=== PATIENT | female | born 1995 | race Caucasian/White ===

== ENCOUNTER 2018-11-15 11:17 | Inpatient (IN) | payer BC ==
[2018-11-15 12:54] LABS: ADD MAN DIFF? NO
[2018-11-15 12:57] LABS: BASOPHIL # 0.1 10^3/ul (0.0-0.1); BASOPHILS % 0.6 % (0.0-2.0); EOSINOPHILS # 0.2 10^3/ul (0.0-0.5); EOSINOPHILS % 2.6 % (0.0-7.0); HEMATOCRIT 32.1 % (37.0-47.0); HEMOGLOBIN 10.2 g/dl (12.0-16.0); LYMPHOCYTES # 1.3 10^3/ul (0.8-2.9); LYMPHOCYTES % 14.3 % (15.0-51.0); MEAN CORPUSCULAR HEMOGLOBIN 27.3 pg (29.0-33.0); MEAN CORPUSCULAR HGB CONC 31.8 g/dl (32.0-37.0); MEAN CORPUSCULAR VOLUME 85.8 fl (82.0-101.0); MEAN PLATELET VOLUME 9.8 fl (7.4-10.4); MONOCYTE # 0.7 10^3/ul (0.3-0.9); MONOCYTES % 7.7 % (0.0-11.0); NEUTROPHIL # 6.6 10^3/ul (1.6-7.5); NEUTROPHILS % 73.9 % (39.0-77.0); PLATELET COUNT 198 10^3/UL (140-415); RED BLOOD COUNT 3.74 10^6/ul (4.20-5.40); RED CELL DISTRIBUTION WIDTH 14.6 % (11.5-14.5)
[2018-11-15 13:29] LABS: ADD UMIC YES; UR ASCORBIC ACID NEGATIVE (NEGATIVE); UR BACTERIA FEW /HPF (NONE SEEN); UR BILIRUBIN (Dip) NEGATIVE (NEGATIVE); UR BLOOD (Dip) 1+ mg/dL (NEGATIVE); UR CLARITY CLOUDY (CLEAR); UR COLOR YELLOW (YELLOW); UR GLUCOSE (Dip) NEGATIVE (NEGATIVE); UR KETONES (Dip) NEGATIVE (NEGATIVE); UR LEUKOCYTE ESTERASE (Dip) 1+ Leu/ul (NEGATIVE); UR MUCUS FEW /HPF (NONE SEEN); UR NITRITE (Dip) NEGATIVE (NEGATIVE); UR NONSQUAMOUS EPITHELIAL CELL 1 /HPF (NONE SEEN); UR RBC 5 /HPF (0-5); UR SPECIFIC GRAVITY (Dip) 1.021 (1.003-1.030); UR SQUAMOUS EPITHELIAL CELL FEW /HPF (FEW); UR TOTAL PROTEIN (Dip) 1+ mg/dl (NEGATIVE); UR UROBILINOGEN (Dip) NEGATIVE (NEGATIVE); UR WBC 16 /HPF (0-5)
[2018-11-15 13:33] LABS: ALANINE AMINOTRANSFERASE 13 IU/L (13-69); ALBUMIN 3.3 g/dl (3.3-4.9); ALBUMIN/GLOBULIN RATIO 0.97; ALKALINE PHOSPHATASE 177 IU/L (42-121); ANION GAP 7 (5-13); ASPARTATE AMINO TRANSFERASE 21 IU/L (15-46); BILIRUBIN,INDIRECT 0.4 mg/dl (0-1.1); BILIRUBIN,TOTAL 0.4 mg/dl (0.2-1.3); BLOOD UREA NITROGEN 10 mg/dl (7-20); CALCIUM 9.8 mg/dl (8.4-10.2); CARBON DIOXIDE 24 mmol/L (21-31); CHLORIDE 103 mmol/L (97-110); CREATININE 0.53 mg/dl (0.44-1.00); Estimated GFR > 60 mL/min (>60); GLUCOSE 83 mg/dl (70-220); POTASSIUM 4.5 mmol/L (3.5-5.1); SODIUM 134 mmol/L (135-144); TOTAL PROTEIN 6.7 g/dl (6.1-8.1)
[2018-11-16] MEDS: CALCIUM CARBONATE 500 MG CHEW TAB PO (03:28)
[2018-11-16] MEDS ORDERED: LACTATED RINGER'S 1,000 ML IV (11:23)
[2018-11-16] MEDS ORDERED: BUTORPHANOL 2 MG INJ IV (11:30)
[2018-11-16] MEDS ORDERED: MISOPROSTOL 200 MCG TAB PR (11:30)
[2018-11-16] MEDS ORDERED: METHYLERGONOVINE 0.2 MG INJ IM (11:30)
[2018-11-16] MEDS ORDERED: LIDOCAINE 1% (MPF) 30 ML INJ INJ (11:30)
[2018-11-16] MEDS ORDERED: OXYTOCIN 30 UNITS/LR 500 ML IV ×3 (11:30)
[2018-11-16] MEDS ORDERED: IBUPROFEN 600 MG TAB PO (11:30)
[2018-11-16] MEDS ORDERED: CARBOPROST 250 MCG INJ IM (11:30)
[2018-11-16] MEDS: MISOPROSTOL 50 MCG CAPSULE PO ×3 (12:42→22:48)
[2018-11-16] MEDS: LACTATED RINGER'S 1,000 ML IV ×2 (12:42→19:34)
[2018-11-16] MEDS: AMPICILLIN 2 GM/NS (PMX) 100 ML IV (12:43)
[2018-11-16 13:58] LABS: INR 0.94; PROTIME 12.7 Sec (11.9-14.9)
[2018-11-16 13:59] LABS: PARTIAL THROMBOPLASTIN TIME 25.2 Sec (23.0-35.0)
[2018-11-16 14:22] LABS: HEPATITIS B SURFACE ANTIGEN NEGATIVE (NEGATIVE)
[2018-11-16] MEDS: AMPICILLIN 1 GM/NS (PMX) 50 ML IV ×2 (17:01→20:50)
[2018-11-16] MEDS ORDERED: CALCIUM CARBONATE 500 MG CHEW TAB PO (19:30)
[2018-11-16 19:52] LABS: RAPID PLASMA REAGIN NONREACTIVE (NR)
[2018-11-17] MEDS: AMPICILLIN 1 GM/NS (PMX) 50 ML IV ×6 (00:55→20:57)
[2018-11-17] MEDS: MISOPROSTOL 50 MCG CAPSULE PO ×3 (04:11→14:01)
[2018-11-17] MEDS: LACTATED RINGER'S 1,000 ML IV ×3 (04:13→23:02)
[2018-11-17] MEDS: OXYTOCIN 30 UNITS/LR 500 ML IV (18:01)
[2018-11-18] MEDS: AMPICILLIN 1 GM/NS (PMX) 50 ML IV ×6 (01:32→22:07)
[2018-11-18] MEDS: BUTORPHANOL 2 MG INJ IV (02:58)
[2018-11-18] MEDS: LACTATED RINGER'S 1,000 ML IV ×4 (05:51→23:31)
[2018-11-18] MEDS ORDERED: FENTAnyl 2MCG/ML-ROPIV 0.2% 100 ML (06:23)
[2018-11-18] MEDS ORDERED: NALOXONE (0.4 MG/ML) INJ IV (06:30)
[2018-11-18] MEDS ORDERED: DIPHENHYDRAMINE 50 MG INJ IV (06:30)
[2018-11-18] MEDS ORDERED: ONDANSETRON 4 MG INJ IV (06:30)
[2018-11-18] MEDS: FENTAnyl 2MCG/ML-ROPIV 0.2% 100 ML BAG EPI ×2 (13:16→19:44)
[2018-11-19] MEDS: LACTATED RINGER'S 1,000 ML IV* ×2 (01:22→09:22)
[2018-11-19] MEDS ORDERED: METHYLERGONOVINE 0.2 MG INJ IM (01:30)
[2018-11-19] MEDS ORDERED: MISOPROSTOL 200 MCG TAB PR (01:30)
[2018-11-19] MEDS ORDERED: CARBOPROST 250 MCG INJ IM (01:30)
[2018-11-19] MEDS ORDERED: OXYTOCIN 30 UNITS/LR 500 ML IV (01:30)
[2018-11-19] MEDS: MINERAL OIL LIGHT 10 ML VIAL TOP (03:14)
[2018-11-19] MEDS: BENZOCAINE 20% 56 ML SPRAY TOP (05:22)
[2018-11-19] MEDS: LANOLIN HPA 1 PKT TOP (05:22)
[2018-11-19] MEDS: IBUPROFEN 600 MG TAB PO ×4 (05:34→23:50)
[2018-11-19] MEDS: OXYTOCIN 30 UNITS/LR 500 ML IV (07:22)
[2018-11-19 14:45] LABS: AMPHETAMINE/METHAMPHETAMINE Negative (NEGATIVE); BARBITURATES Negative (NEGATIVE); BENZODIAZEPINES Negative (NEGATIVE); CANNABINOIDS Negative (NEGATIVE); COCAINE Negative (NEGATIVE); OPIATES Negative (NEGATIVE)
[2018-11-20] MEDS: IBUPROFEN 600 MG TAB PO ×4 (05:44→23:55)
[2018-11-20 08:40] LABS: ADD MAN DIFF? NO
[2018-11-20 08:46] LABS: BASOPHIL # 0.1 10^3/ul (0.0-0.1); BASOPHILS % 0.8 % (0.0-2.0); EOSINOPHILS # 0.5 10^3/ul (0.0-0.5); EOSINOPHILS % 5.5 % (0.0-7.0); HEMATOCRIT 26.5 % (37.0-47.0); HEMOGLOBIN 8.2 g/dl (12.0-16.0); LYMPHOCYTES % 21.7 % (15.0-51.0); MEAN CORPUSCULAR HEMOGLOBIN 27.2 pg (29.0-33.0); MEAN CORPUSCULAR HGB CONC 30.9 g/dl (32.0-37.0); MEAN PLATELET VOLUME 9.9 fl (7.4-10.4); MONOCYTE # 0.8 10^3/ul (0.3-0.9); MONOCYTES % 8.4 % (0.0-11.0); NEUTROPHIL # 5.6 10^3/ul (1.6-7.5); NEUTROPHILS % 61.4 % (39.0-77.0); PLATELET COUNT 188 10^3/UL (140-415); RED BLOOD COUNT 3.01 10^6/ul (4.20-5.40); RED CELL DISTRIBUTION WIDTH 15.3 % (11.5-14.5)
[2018-11-20 08:46] LABS: WHITE BLOOD COUNT 9.1 10^3/ul (4.8-10.8)
[2018-11-20] MEDS: SENNA/DOCUSATE NA (8.6MG/50MG) TAB PO ×2 (09:39→21:00)
[2018-11-20] MEDS: MEASLES,MUMPS,RUBELLA VACCINE INJ SC* (10:59)
[2018-11-20] MEDS: FERROUS SULFATE (EC) 325 MG TAB PO (21:00)
[2018-11-21] MEDS: IBUPROFEN 600 MG TAB PO ×3 (05:43→17:56)
[2018-11-21] MEDS: HYDROCODONE/APAP (5/325) TAB PO ×2 (09:37→16:19)
[2018-11-21] MEDS: SENNA/DOCUSATE NA (8.6MG/50MG) TAB PO ×2 (09:37→22:08)
[2018-11-21] MEDS: FERROUS SULFATE (EC) 325 MG TAB PO ×3 (09:37→22:08)
[2018-11-21] MEDS: LANOLIN HPA 1 PKT TOP ×2 (09:39→17:57)
[2018-11-21] MEDS: DIPHTH/TET/ACEL PERTUSS (ADULT) 0.5 ML VIAL IM* (09:39)
== END 2018-11-21 22:39 | disposition home or self-care (01) | DRG 807 ==
LOC: OBT 11:17 → L-D 11-16 11:07 → PP1 11-19 03:32 → L-D 11:19 → OBT 13:00 → L-D 13:00
PROC: 10E0XZZ Delivery of Products of Conception, External Approach (ICD-10-PCS; principal; 2018-11-19)
PROC: 3E033VJ Introduction of Other Hormone into Peripheral Vein, Percutaneous Approach (ICD-10-PCS; 2018-11-19)
PROC: 0HQ9XZZ Repair Perineum Skin, External Approach (ICD-10-PCS; 2018-11-19)
DX: O36.8130 Decreased fetal movements, third trimester, not applicable or unspecified (principal); Z37.0 Single live birth; O13.3 Gestational [pregnancy-induced] hypertension without significant proteinuria, third trimester; Z3A.38 38 weeks gestation of pregnancy; O70.9 Perineal laceration during delivery, unspecified
CPT/HCPCS: 62322; 76815; 76818; 80053; 80307; 81001; 84560; 85025; 85384; 85610; 85730; 86592; 86850; 86900; 86901; 87340; 90715